=== PATIENT | female | born 1955 | race Two or more races ===

== ENCOUNTER 2023-08-26 05:48 | Inpatient (IN) | payer OTHER, MEDICAID ==
[~2023-08-26] VITALS: Ht 172.7 cm; Wt 118.8 kg
[2023-08-26 07:15] LABS: Basophils # (auto) 0.1 10 ^3/uL (0-0.2); Basophils % (auto) 0.8 % (0.0-2.0); Eosinophils # (auto) 0.1 10 ^3/uL (0-0.8); Eosinophils % (auto) 1.1 % (0.0-7.0); Hematocrit 42.3 % (36.0-46.0); Hemoglobin 14.4 g/dL (12.2-16.2); Lymphocytes % (auto) 30.5 % (10.0-50.0); Mean Corpuscular Hemoglobin 30.2 pg (28.0-32.0); Mean Corpuscular Volume 88.7 fL (80.0-100.0); Monocytes # (auto) 0.5 10 ^3/uL (0-1.3); Monocytes % (auto) 5.5 % (0.0-12.0); Neutrophils # (auto) 6.2 10 ^3/uL (1.6-8.6); Neutrophils % (auto) 62.1 % (37.0-80.0); Nucleated Red Blood Cells % 0.1 %; Red Blood Cells 4.77 10^6/uL (4.0-5.20); Red Cell Distribution Width 13.2 % (11.8-14.3); White Blood Cell 9.9 10^3/uL (4.4-10.8)
[2023-08-26 07:24] LABS: Chloride 103 mmol/L (98-107); Potassium 3.7 mmol/L (3.5-5.1); Sodium 136 mmol/L (136-145)
[2023-08-26 07:25] LABS: Anion Gap 11 (5-15); Carbon Dioxide 22 mmol/L (20-30)
[2023-08-26 07:31] LABS: BUN/Creatinine Ratio 10.5 (10.0-20.0); Blood Urea Nitrogen 9 mg/dL (9-23); Glucose 156 mg/dL (74-106)
[2023-08-26 07:43] VITALS: PULSE 78; RESP 20; O2SAT 92
[2023-08-26] MEDS: ONDANSETRON HCL 4 MG/2 ML VIAL IV ONE (08:22)
[2023-08-26] MEDS: MORPHINE SULFATE INJ 2 MG/ml SYRG IV ONE (08:23)
[2023-08-26] MEDS: SODIUM CHLORIDE 0.9% 1,000 ML IV ONE (08:23)
[2023-08-26 10:02] LABS: Urine Bacteria None Seen /hpf (None Seen)
[2023-08-26 10:38] LABS: Urine Blood Negative /uL (Negative); Urine Clarity Clear (Clear); Urine Color Light-Yellow (Yellow); Urine Hyaline Cast FEW /lpf (0 - 2); Urine Mucus FEW (None Seen); Urine Protein, UAD Negative (Negative); Urine Specific Gravity 1.008 (1.001-1.035); Urine Urobilinogen Normal (Negative); Urine WBC 1 /hpf (0 - 5)
[2023-08-26] MEDS ORDERED: SODIUM CHLORIDE 0.9% 1,000 ML IV SCH (11:00)
[2023-08-26] MEDS ORDERED: MORPHINE SULFATE INJ 2 MG/ml SYRG IV PRN ×2 (11:00→11:15)
[2023-08-26] MEDS ORDERED: PANTOPRAZOLE 40 MG/10 ML VIAL INJ IV ONE (11:00)
[2023-08-26] MEDS ORDERED: HYDROcodone-ACET 5/325MG TAB PO PRN (11:00)
[2023-08-26] MEDS ORDERED: ACETAMINOPHEN 325 MG TAB PO PRN (11:00)
[2023-08-26] MEDS ORDERED: DEXTROSE (50%) 50ML SYRG IV PRN ×2 (11:00→11:15)
[2023-08-26] MEDS ORDERED: hydrALAZINE HCL 20 MG/ML VL IV PRN ×2 (11:00→11:15)
[2023-08-26] MEDS ORDERED: ONDANSETRON HCL 4 MG/2 ML VIAL IV PRN ×2 (11:00→11:15)
[2023-08-26] MEDS ORDERED: METF-370 PO (11:23)
[2023-08-26] MEDS ORDERED: ATOR10TA52 PO (11:27)
[2023-08-26] MEDS ORDERED: AML5T PO (11:27)
[2023-08-26] MEDS ORDERED: METO25TA5 PO (11:29)
[2023-08-26] MEDS ORDERED: InsuLIN REG 1unit/0.01ml Soln (100units/ml) SC SCH (11:30)
[2023-08-26] MEDS ORDERED: OMEG1400 PO (11:30)
[2023-08-26] MEDS: InsuLIN REG 1unit/0.01ml Soln (100units/ml) SC SCH (11:30)
[2023-08-26] MEDS ORDERED: ACCU-CHEK COMFORT CURVE STRIP VI SCH (11:30)
[2023-08-26] MEDS ORDERED: MULT1TAB28 PO (11:31)
[2023-08-26 11:32] LABS: Triglycerides 184 mg/dL (< 150)
[2023-08-26 11:33] LABS: LDL Cholesterol 90 mg/dL (< 100)
[2023-08-26 11:34] LABS: Cholesterol 157 mg/dL (< 200); HDL Cholesterol 46 mg/dL (40-59)
[2023-08-26] MEDS: ACCU-CHEK COMFORT CURVE STRIP VI SCH (12:19)
[2023-08-26] MEDS: PANTOPRAZOLE 40 MG/10 ML VIAL INJ IV ONE (12:27)
[2023-08-26] MEDS: SODIUM CHLORIDE 0.9% 1,000 ML IV SCH (12:27)
[2023-08-26 13:20] LABS: Lipase 35 U/L (12-53)
[2023-08-26 13:21] LABS: Amylase 58 U/L (30-118)
[2023-08-26 14:13] VITALS: PULSE 74; RESP 16
[2023-08-26 17:13] VITALS: BP 135/49; PULSE 74; RESP 18; TEMP 97.9; O2SAT 94
[2023-08-26 20:00] VITALS: PULSE 69; RESP 16; O2SAT 96
[2023-08-26 21:00] VITALS: BP 123/60; PULSE 69; RESP 16; TEMP 97.9; O2SAT 96
[2023-08-26] MEDS: METOPROLOL TARTRATE 25 MG TAB PO SCH (22:26)
[2023-08-27] VITALS (8 sets, daily range): BP systolic 106–124; BP diastolic 45–61; PULSE 64–79; RESP 14–19; TEMP 97.6–98.3; O2SAT 91–98
[2023-08-27] MEDS: LEVOTHYROXINE SODIUM 25 MCG TAB PO SCH (04:55)
[2023-08-27] MEDS: HYDROcodone-ACET 5/325MG TAB PO PRN (04:57)
[2023-08-27 05:41] LABS: Basophils # (auto) 0 10 ^3/uL (0-0.2); Basophils % (auto) 0.7 % (0.0-2.0); Eosinophils # (auto) 0.3 10 ^3/uL (0-0.8); Eosinophils % (auto) 3.8 % (0.0-7.0); Hematocrit 36.5 % (36.0-46.0); Hemoglobin 12.3 g/dL (12.2-16.2); Lymphocytes # (auto) 2.9 10 ^3/uL (0.4-5.4); Lymphocytes % (auto) 43.6 % (10.0-50.0); Mean Corpuscular Hemoglobin 30.5 pg (28.0-32.0); Mean Corpuscular Hgb Conc. 33.7 g/dL (32.0-36.0); Mean Corpuscular Volume 90.6 fL (80.0-100.0); Monocytes # (auto) 0.4 10 ^3/uL (0-1.3); Monocytes % (auto) 6.6 % (0.0-12.0); Neutrophils % (auto) 45.3 % (37.0-80.0); Nucleated Red Blood Cells % 0.2 %; Red Blood Cells 4.03 10^6/uL (4.0-5.20); Red Cell Distribution Width 13.5 % (11.8-14.3); White Blood Cell 6.6 10^3/uL (4.4-10.8)
[2023-08-27 05:53] LABS: Alanine Aminotransferase 29 U/L (7-40); Albumin 3.6 g/dL (3.2-4.8); Alkaline Phosphatase 57 U/L (46-116); Anion Gap 6 (5-15); Aspartate Aminotransferase 35 U/L (13-40); Calcium 9.1 mg/dL (8.7-10.4); Carbon Dioxide 22 mmol/L (20-30); Chloride 110 mmol/L (98-107); Glucose 107 mg/dL (74-106); Sodium 138 mmol/L (136-145)
[2023-08-27 05:54] LABS: Bilirubin, Total 0.5 mg/dL (0.2-1.0); Total Protein 6.1 g/dL (5.7-8.2)
[2023-08-27 06:30] LABS: BUN/Creatinine Ratio 8.6 (10.0-20.0); Blood Urea Nitrogen < 5 mg/dL (9-23)
[2023-08-27] MEDS ORDERED: ENOXAPARIN SOD 40 MG/0.4 ML SYRINGE SC SCH (10:00)
[2023-08-27] MEDS ORDERED: PANTOPRAZOLE 40 MG/10 ML VIAL INJ IV SCH (10:00)
[2023-08-27] MEDS: amLODIPine BESYLATE 5 MG TAB PO SCH (10:00)
[2023-08-27] MEDS: ENOXAPARIN SOD 40 MG/0.4 ML SYRINGE SC SCH (10:00)
[2023-08-27] MEDS: ATORVASTATIN 20 MG TAB PO SCH (10:00)
[2023-08-27] MEDS: PANTOPRAZOLE 40 MG/10 ML VIAL INJ IV SCH (10:00)
[2023-08-27 11:17] LABS: INR 1.11 (0.9-1.15); Partial Thromboplastin Time 26.1 SEC (24.5-34.5); Prothrombin Time 11.7 sec (9.3-11.8)
[2023-08-27] MEDS ORDERED: FLUMAZENIL 0.1 MG/ML INJ 10ML MDV IV ONE (12:14)
[2023-08-27] MEDS ORDERED: NALOXONE HCL 0.4 MG/ML VIAL ONE (12:14)
[2023-08-27] MEDS ORDERED: SODIUM CHLORIDE LOCK 10 ML ONE (12:16)
[2023-08-27] MEDS ORDERED: METOCLOPRAMIDE HCL 5MG/ml INJ 2ml VIAL IV ONE (12:30)
[2023-08-27] MEDS ORDERED: METOCLOPRAMIDE HCL 5MG/ml INJ 2ml VIAL ONE (12:32)
[2023-08-27] MEDS: LIDOCAINE VISCOUS 2% 15ML UD ONE (12:41)
[2023-08-27] MEDS: diphenhdrAMINE HCL 50 MG/1 ML VL ONE (12:50)
[2023-08-27] MEDS: MIDAZOLAM HCL 5 MG/ML-1ML VIAL ONE (12:50)
[2023-08-27] MEDS: fentaNYL CITRATE 100 MCG/2 ML VL ONE (12:50)
[2023-08-27] MEDS: ACETAMINOPHEN 325 MG TAB PO PRN (15:08)
[2023-08-28 01:00] VITALS: BP 131/60; PULSE 75; RESP 18; TEMP 97.2; O2SAT 95
[2023-08-28 05:00] VITALS: BP 116/47; PULSE 70; RESP 18; TEMP 97.2; O2SAT 98
[2023-08-28 08:00] VITALS: PULSE 79; RESP 16; O2SAT 91
[2023-08-28] MEDS ORDERED: PANT40T PO (08:25)
[2023-08-28 09:00] VITALS: BP 105/51; PULSE 79; RESP 16; TEMP 97.6; O2SAT 91
[2023-08-28 10:25] VITALS: BP 105/51; PULSE 79
[2023-08-28 12:34] VITALS: BP 145/70; PULSE 73; RESP 16; TEMP 98; O2SAT 96
== END 2023-08-28 12:35 | disposition home or self-care (01) | DRG 392 ==
LOC: ER 05:54 → OVERFLOW 10:59 → ER 10:59 → CENTRAL 15:36
PROVIDERS: ADMIT Registered Nurse; ATTEND Family Medicine
PROC: 0DB68ZX Excision of Stomach, Via Natural or Artificial Opening Endoscopic, Diagnostic (ICD-10-PCS; 2023-08-27)
PROC: 0DB98ZX Excision of Duodenum, Via Natural or Artificial Opening Endoscopic, Diagnostic (ICD-10-PCS; principal; 2023-08-27 12:42)
DX: K29.60 Other gastritis without bleeding (principal); I10 Essential (primary) hypertension; E66.9 Obesity, unspecified; K21.9 Gastro-esophageal reflux disease without esophagitis; E03.9 Hypothyroidism, unspecified; E11.9 Type 2 diabetes mellitus without complications; Z88.1 Allergy status to other antibiotic agents; Z79.899 Other long term (current) drug therapy; Z68.39 Body mass index [BMI] 39.0-39.9, adult
CPT/HCPCS: 36415; 71045; 74176; 76705; 80048; 80053; 80061; 81001; 82150; 82962; 83036; 83690; 84443; 84484; 85025; 85610; 85730; 93005; 96361; 96374; 96375; G0378; J2250; J2405